=== PATIENT | female | born 1995 | race Asian ===

== ENCOUNTER 2019-01-05 09:31 | Emergency (ER) | payer MEDICAID, SELFPAY ==
[2019-01-05 09:32] VITALS: BP 137/81; PULSE 81; RESP 17; TEMP 37; O2SAT 100; BMI 38.5
--- NOTE | 2019-01-05 09:42 | ED.VIS.GEN ---
History of Present Illness Chief Complaint: Complaint Informant: Patient Onset: Days Context: Gradual Onset Timing: Intermittent Current Severity: Moderate Maximum Severity: Moderate Narrative: Patient presents to the emergency department with dysuria. States been on for a few days. She does admit to some urgency and urinary hesitancy. She denies any fevers or chills. She denies any back pain. She denies any vaginal bleeding or discharge. She has a history of polycystic ovarian syndrome, but states this feels different. She is otherwise been in her normal state of health. Prior similar symptoms: No Recent Illness/Hospitalization: No Past Medical History - Allergies and Home Meds Allergies/Adverse Reactions: Allergies PURPLE DYE Allergy (Uncoded 01/05/19 09:32) Hives Primary Care Physician: Care Physician,No Primary [Primary Care Provider] - Prior records reviewed: Yes Past Medical History: - - PCOS Surgical History: no surgical history Lives: Alone Review of Systems General: Denies: Chills, Fever, Sweats Eyes: Denies: Visual changes - bilaterally, Diplopia ENT: Denies: Rhinorrhea, Sore throat Cardiovascular: Denies: Chest pain, Palpitations Respiratory: Denies: Dyspnea, Cough, Dyspnea on exertion Gastrointestinal: Denies: Abdominal pain, Nausea, Vomiting, Diarrhea, Melena, Hematochezia Genitourinary: Reports: Dysuria, Frequency. Denies: Hematuria Musculoskeletal: Denies: Back pain, Extremity Pain Skin: Denies: Rash, Wounds Neurological: Denies: Headache, Weakness, Numbness Physical Exam Vital Signs/Narrative: Vital Signs Temp Pulse Resp BP Pulse Ox 01/05/19 09:32 98.6 F 81 17 137/81 H 100 Inital Vital Signs reviewed: Yes General: Well nourished, Well developed, No Acute Distress Head: Normocephalic, Atraumatic Eyes: Perrl, EOMI ENT: Moist mucous membranes, No rhinorrhea Neck: Supple, Nontender Cardiovascular: Regular rate, Regular rhythm, No murmurs Respiratory: No distress, CTA bilaterally, Chest nontender Abdomen: Soft, Nontender, Nondistended, Normal bowel sounds Back: Nontender, Normal Inspection Extremities: Nontender, No edema Skin: Normal color, No rash Neurological: Alert, Oriented x3, Cranial nerves II-XII grossly intact, Normal Strength, Normal Sensation Psychological: Normal affect, Normal Mood Diagnostic/Tx/Re-eval Abnormal Lab Results 01/05/19 01/05/19 11:10 11:10 Urine Color Yellow Urine Clarity Sl. Cloudy Urine pH 6.5 Ur Specific [place] 1.010 Urine Protein Negative Urine Glucose (UA) Normal Urine Ketones Negative Urine Occult Blood Negative Urine Nitrite Negative Urine Bilirubin Negative Urine Urobilinogen Normal Ur Leukocyte Esterase 25 H Urine RBC 0-5 SEEN Urine WBC 0-5 SEEN Ur Squamous Epith Cells 0-5 SEEN Urine Bacteria RARE Urine Mucus 0 SEEN Urine Test Negative - Medical Decision Making Impression: Symptoms seem consistent with an acute cystitis. She has no flank pain. She said no fever chills. Urine was obtained but does show leukocyte esterase and few bacteria. I am going to treat the patient with Macrobid. I do not suspect pyelonephritis. The patient is not . She is comfortable with this plan of care and will be discharged home. Impression 1. Acute cystitis ED Disposition - Plan for ED Patient: Instructions: Bladder Infection, Female (Adult) Prescriptions: Nitrofurantoin Macrocrystals [Macrobid] 100 mg PO Q12 #10 cap Prescription Printed Referrals: Care Physician,No Primary [Primary Care Provider] -
[2019-01-05 11:15] LABS: Mucous, Urine 0 SEEN /hpf (<or=2+)
[2019-01-05 11:18] LABS: Internal QC Validated? YES +Cl - CLEAR BKGD; Pregnancy, Urine Negative Negative
[2019-01-05 11:19] LABS: Color, Urine Yellow (Yellow); Glucose, Dipstick Normal (Normal); Ketone-Dipstick Negative (Negative); Leukocyte Esterase-Dipstick 25 /ul (Negative); Nitrite-Dipstick Negative (Negative); Occult Blood-Urine Negative /ul (Negative); Protein-Dipstick Negative (Negative); Urine Bilirubin Dipstick Negative (Negative); Urine Clarity Sl. Cloudy (Clear); Urine Urobilinogen Normal (Normal); Urine pH 6.5 (5.0 - 8.0)
[2019-01-05 11:23] LABS: Bacteria RARE /hpf (None Seen); Red Blood Cells-Urine 0-5 SEEN /hpf (0-5); Squamous Epithelial Cells - UA 0-5 SEEN /hpf (5-10); White Blood Cells 0-5 SEEN /hpf (0-5)
[2019-01-05] MEDS: Nitrofurantoin Macrocrystals 100 MG Capsule PO (11:37)
== END 2019-01-05 11:41 | disposition short-term general hospital (02) ==
LOC: ED 10:03
PROVIDERS: Emergency Provider Emergency Medicine
DX: N30.00 Acute cystitis without hematuria (principal); E28.2 Polycystic ovarian syndrome
CPT/HCPCS: 81001; 81025; 99283

== ENCOUNTER → 2019-10-21 | Outpatient (CLI) | payer BC, SELFPAY ==
[2019-10-21 11:35] VITALS: BMI 38.5
[2019-10-24 03:07] LABS: Chlamydia By Nucleic Acid AMP Positive (Negative)
[2019-10-24 07:33] LABS: Gonococcus By Nucleic Acid AMP Negative (Negative)
== END | disposition home or self-care (01) ==
LOC: LABSPEC 17:05
PROVIDERS: Referring Provider Obstetrics & Gynecology; Visit Provider Obstetrics & Gynecology
DX: Z11.3 Encounter for screening for infections with a predominantly sexual mode of transmission (principal)
CPT/HCPCS: 87491; 87591

== ENCOUNTER → 2019-10-22 09:06 | Outpatient (CLI) | payer BC, SELFPAY ==
[2019-10-21 11:35] VITALS: BMI 38.5
[2019-10-22 10:03] LABS: Hemoglobin A1c 5.5 % (3.8-5.6)
[2019-10-22 10:54] LABS: HIV - WCH Non-Reactive (Nonreactive); Hepatitis B Surface Antigen Non-Reactive (Nonreactive); Hepatitis C Antibody Non-Reactive (Nonreactive); Rubella IgG 15.2 IU/mL
[2019-10-23 16:08] LABS: Hemoglobin Fraction A 98.1 % (96.4-98.8); Hemoglobin Fraction A2 1.9 % (1.8-3.2); Hemoglobin Fraction C 0 % (0.0); Hemoglobin Fraction F 0 % (0.0-2.0); Hemoglobin Fraction S 0 % (0.0); Hemoglobin Solubility,Panel Negative (Negative)
[2019-10-23 16:44] LABS: V-Zoster IgG (Immunity) 2031 index (Immune >165)
[2019-10-29 05:27] LABS: Rapid Plasmin Reagin (RPR) NONREACTIVE (NONREACTIVE)
== END ==
PROVIDERS: Referring Provider Obstetrics & Gynecology; Visit Provider Obstetrics & Gynecology
DX: Z31.69 Encounter for other general counseling and advice on procreation (principal)
CPT/HCPCS: 36415; 83021; 83036; 85660; 86592; 86703; 86762; 86787; 86803; 87340

== ENCOUNTER → 2019-12-07 15:11 | Outpatient (CLI) | payer BC, SELFPAY ==
[2019-10-21 11:35] VITALS: BMI 38.5
[2019-12-07 16:30] LABS: Estradiol 71.7 pg/mL; Prolactin 14.2 ng/mL; Thyroid Stim Hormone (TSH) 1.34 uIU/mL (0.358-3.74)
[2019-12-11 12:08] LABS: Testosterone, % Free 2.04 % (0.50-2.80); Testosterone, Free 1.35 ng/dL (0.10-0.85); Testosterone, Total 66 ng/dL (8-48)
== END ==
PROVIDERS: Referring Provider Obstetrics & Gynecology; Visit Provider Obstetrics & Gynecology
DX: N91.2 Amenorrhea, unspecified (principal)
CPT/HCPCS: 36415; 82627; 82670; 83001; 83002; 84146; 84402; 84403; 84443; 82626

== ENCOUNTER → 2019-12-30 09:12 | Outpatient (CLI) | payer BC, SELFPAY ==
[2019-12-30 08:37] VITALS: BMI 43.3
[2019-12-30 10:41] LABS: HIV - WCH Non-Reactive (Nonreactive)
[2019-12-31 01:11] LABS: Rapid Plasmin Reagin (RPR) NONREACTIVE (NONREACTIVE)
[2020-01-01 03:06] LABS: HCV Quant. RNA PCR HCV Not Detected IU/mL (.)
[2020-01-01 06:49] LABS: HSV 1 IgG < 0.91 index (0.00-0.90); HSV 2 IgG < 0.91 index (0.00-0.90)
[2020-01-02 20:07] LABS: Chlamydia By Nucleic Acid AMP Negative (Negative)
[2020-01-02 21:10] LABS: Gonococcus By Nucleic Acid AMP Positive (Negative)
== END ==
PROVIDERS: Referring Provider Nurse Practitioner Women's Health; Visit Provider Nurse Practitioner Women's Health
DX: N91.2 Amenorrhea, unspecified (principal); Z11.3 Encounter for screening for infections with a predominantly sexual mode of transmission
CPT/HCPCS: 36415; 86592; 86695; 86696; 86703; 87070; 87205; 87491; 87522; 87591

== ENCOUNTER → 2020-01-27 | Outpatient (CLI) | payer BC, SELFPAY ==
[2020-01-27 08:31] VITALS: BMI 43.1
[2020-02-01 20:07] LABS: Chlamydia By Nucleic Acid AMP Negative (Negative)
[2020-02-01 20:12] LABS: Gonococcus By Nucleic Acid AMP Negative (Negative)
== END | disposition home or self-care (01) ==
LOC: LABSPEC 13:22
PROVIDERS: Referring Provider Obstetrics & Gynecology; Visit Provider Obstetrics & Gynecology
DX: Z11.3 Encounter for screening for infections with a predominantly sexual mode of transmission (principal)
CPT/HCPCS: 87491; 87591

== ENCOUNTER → 2020-03-01 | Outpatient (CLI) | payer BC, SELFPAY ==
[2020-01-27 08:31] VITALS: BMI 43.1
[2020-03-01 16:59] LABS: Chlamydia Trachomatis by PCR Negative (Negative); Neisserai gonorrhoeae by PCR Negative (Negative); Probe Check PASS; Sample Adequacy Control PASS; Specimen Processing Control PASS
== END | disposition home or self-care (01) ==
PROVIDERS: Referring Provider Nurse Practitioner Women's Health; Visit Provider Nurse Practitioner Women's Health
DX: Z11.3 Encounter for screening for infections with a predominantly sexual mode of transmission (principal)
CPT/HCPCS: 87491; 87591

== ENCOUNTER → 2020-03-15 15:08 | Outpatient (CLI) | payer BC, SELFPAY ==
[2020-01-27 08:31] VITALS: BMI 43.1
== END ==
PROVIDERS: Referring Provider Nurse Practitioner Women's Health; Visit Provider Nurse Practitioner Women's Health
DX: E28.2 Polycystic ovarian syndrome (principal); Z31.9 Encounter for procreative management, unspecified
CPT/HCPCS: 36415

== ENCOUNTER → 2020-04-04 15:08 | Outpatient (CLI) | payer BC, SELFPAY ==
[2020-01-27 08:31] VITALS: BMI 43.1
[2020-04-04 16:19] LABS: Progesterone Level < 0.21 ng/mL (See Comment)
== END ==
PROVIDERS: Referring Provider Nurse Practitioner Women's Health; Visit Provider Nurse Practitioner Women's Health
DX: N97.9 Female infertility, unspecified (principal)
CPT/HCPCS: 36415; 84144

== ENCOUNTER → 2021-03-02 09:02 | Outpatient (CLI) | payer BC, SELFPAY ==
[2021-03-02 09:45] LABS: Vitamin D,25 Hydroxy 24.7 ng/mL
[2021-03-02 09:51] LABS: Cholesterol 181 mg/dL (200); Glucose 98 mg/dL (74-106); High Density Lipoprotein 46 mg/dL; Thyroid Stim Hormone (TSH) 2.04 uIU/mL (0.358-3.74); Triglycerides 69 mg/dL; Very Low Density Lipoprotein 14 mg/dL (5-40)
== END ==
PROVIDERS: Referring Provider Obstetrics & Gynecology; Visit Provider Obstetrics & Gynecology
DX: Z13.21 Encounter for screening for nutritional disorder (principal); Z13.220 Encounter for screening for lipoid disorders; Z13.1 Encounter for screening for diabetes mellitus; Z13.29 Encounter for screening for other suspected endocrine disorder
CPT/HCPCS: 36415; 80061; 82306; 82947; 84443

== ENCOUNTER → 2022-07-16 | Outpatient (CLI) | payer BC, SELFPAY ==
[2022-07-16 13:03] LABS: Absolute Lymphocyte Count 2.85 X10^3/uL (0.83-4.51); Absolute Neutrophil Count 5.4 X10^3/uL (2.0-7.7); Basophil# 0.08 X10^3/uL; Basophil% 0.9 % (0-1); Eosinophil# 0.19 X10^3/uL; Eosinophils% 2.1 % (0-5); Hematocrit 41.2 % (37-47); Hemoglobin 12.9 g/dL (12.0-15.0); Lymphocyte # 2.85 X10^3/ul (0.83-4.51); Lymphocyte % 31.3 % (19-41); Mean Corp Hgb Conc 31.3 g/dL (32-36); Mean Corpuscular Hgb 22.9 pg (27.0-32.0); Monocyte% 6.6 % (0-10); NRBC Flagged by Analyzer 0 % (0-5); Neutrophil # 5.37 X10^3/uL (2.7-7.7); Neutrophil % 58.9 % (47-70); Platelet Count 297 K/mm3 (150-450); RBC Distribution Width CV 14.7 % (11.6-14.6); RBC Distribution Width SD 38.4 fl (35.1-43.9); Red Blood Count 5.64 M/mm3 (4.2-5.4); White Blood Count 9.1 K/mm3 (4.4-11.0)
[2022-07-16 13:51] LABS: ALB/GLOB Ratio 0.8 RATIO (0.9-2.4); AST(SGOT) 11 U/L (15-37); Alanine Aminotransfer ALT/SGPT 24 U/L (13-56); Albumin, Serum 3.4 g/dL (3.2-5.0); Alkaline Phosphatase 75 U/L (45-117); Anion Gap 7 (5-15); BUN 13 mg/dL (7-18); BUN/Creat Ratio 18.4 RATIO (10-20); Calcium,Total 8.7 mg/dL (8.5-10.1); Chloride 109 mmol/L (98-107); Cholesterol 193 mg/dL (200); Creatinine, Serum 0.71 mg/dL (0.55-1.02); EST Glomerular Filtration Rate 107 mL/min (>60); Est Glom Filt Rate - Afr Amer 129 mL/min (>60); Globulin 4.5 g/dL (2.2-4.2); Glucose 98 mg/dL (74-106); High Density Lipoprotein 57 mg/dL; Protein, Total 7.9 g/dL (6.4-8.2); Sodium Level 141 mmol/L (136-145); Thyroid Stim Hormone (TSH) 1.09 uIU/mL (0.358-3.74); Triglycerides 45 mg/dL; Very Low Density Lipoprotein 9 mg/dL (5-40)
[2022-07-16 14:00] LABS: Hemoglobin A1c 5.5 % (3.8-5.6)
[2022-07-17 14:10] LABS: Vitamin D 1,25-Dihydroxy 39.9 pg/mL (24.8-81.5)
== END | disposition home or self-care (01) ==
LOC: LAB 12:10
PROVIDERS: Referring Provider Obstetrics & Gynecology; Visit Provider Obstetrics & Gynecology
DX: E66.01 Morbid (severe) obesity due to excess calories (principal); Z68.41 Body mass index [BMI] 40.0-44.9, adult; E28.2 Polycystic ovarian syndrome
CPT/HCPCS: 36415; 80053; 80061; 82652; 83036; 84144; 84443; 85025

== ENCOUNTER → 2023-06-03 | Outpatient (CLI) | payer BC, SELFPAY ==
--- NOTE | 2023-06-03 12:28 | US_ITS ---
HISTORY: infertility, PCOS. TECHNIQUE: Transabdominal and transvaginal pelvic ultrasound was performed with maritnez scale and color Doppler evaluation. 99 images. COMPARISON: None. FINDINGS: UTERUS: 8.8 x 5.2 x 3.4 cm. Anteverted. ENDOMETRIAL THICKNESS: 5 mm. RIGHT OVARY: 2.6 x 3.4 x 4.2 cm for a volume of 19 cc. Dominant follicle noted. LEFT OVARY: 2.3 x 3.3 x 4 cm for volume of 16 cc. No adnexal masses FREE FLUID: None. US/Pelvic (Non ) IMPRESSION: Volume of bilateral ovaries measuring greater than 10 cc, compatible with the history of polycystic ovarian syndrome. Electronically Signed: Dee Thao MD at 13:46 EDT ,
== END | disposition home or self-care (01) ==
PROVIDERS: Referring Provider Obstetrics & Gynecology; Visit Provider Obstetrics & Gynecology
DX: E28.2 Polycystic ovarian syndrome (principal); Z31.41 Encounter for fertility testing
CPT/HCPCS: 76830; 76856

== ENCOUNTER → 2023-06-21 | Outpatient (CLI) | payer BC, SELFPAY ==
[2023-06-21 10:45] LABS: Progesterone Level < 0.21 ng/mL (See Comment); Prolactin 12.8 ng/mL; Thyroid Stim Hormone (TSH) 0.79 uIU/mL (0.358-3.74)
[2023-06-28 16:10] LABS: Testosterone Free 1.6 pg/mL (0.0-4.2)
== END | disposition home or self-care (01) ==
LOC: PAVLAB 09:41
PROVIDERS: Referring Provider Obstetrics & Gynecology; Visit Provider Obstetrics & Gynecology
DX: E28.2 Polycystic ovarian syndrome (principal); Z31.41 Encounter for fertility testing
CPT/HCPCS: 36415; 82627; 84144; 84146; 84402; 84443; 82626